=== PATIENT | female | born 1990 | race Caucasian/White ===

== ENCOUNTER 2025-06-07 09:59 | Day surgery (SDC) | payer MEDICAID, SELFPAY ==
[2025-06-06 15:08] VITALS: BMI 36.3
[2025-06-07] VITALS (8 sets, daily range): BP systolic 106–139; BP diastolic 60–95; PULSE 97–118; RESP 18–19; TEMP 36.1–36.3; O2SAT 94–98
--- NOTE | 2025-06-07 10:52 | EXP.ANES.CKL ---
[facility] Disclaimer: The information contained in this section may have been updated after the patient was seen, as this information can be updated by other users. Medical History (Updated 06/06/25 @ 15:07 by Awa Peralta RN) Anxiety Indigestion HLD (hyperlipidemia) Deaf Autism Surgical History (Updated 06/06/25 @ 15:05 by Awa Peralta RN) No significant past surgical history History of cochlear implant Family History (Updated 06/06/25 @ 15:08 by Awa Peralta RN) Other No significant family history Social History (Updated 06/06/25 @ 15:08 by Awa Peralta RN) Smoking Status: Never smoker alcohol intake: never substance use type: denies use current occupational status: disabled Travel in the last 8 weeks?: None [facility] Anesthesia Checklist Patient Identification Patient Identification: Arm Band and Verbal (Name & ) Structural Data Admitted From: Home Planned Operative Procedure/s: Deep cleaning w/ possible dental work Consent for Planned Operative Procedure(s) Verified: Yes Verified Documents: Surgical Consent NPO Status Verified Time NPO: 00:00 Chart Verification Results Verified: None Additional verifications Anesthesia Reactions: No Hx Blood Transfusions: No Blood Transfusion Reaction: No Airway Assessment Mallampati Score:: Class II C-Spine Mobility Assessed: Yes TMJ Mobility Assessed: Yes Dentition: Poor Dentition Neurological Assessment Level of Consciousness: Awake, Alert and Appropriate Hx Seizures: Yes (Many years ago according to mom) Numbness or tingling in extremities: No (Patient unable to verbalize) Anesthesia Plan Anesthesia Risk discussed: Yes Anesthesia Plan: Verified ASA Class: II Anesthesia Type: General
--- NOTE | 2025-06-07 14:46 | EXP.ANES.I ---
[facility] Anesthesia Record Part I Anesthesia Record I Intake, IV Amount: 1,400 Hydration: Adequate Estimated blood loss (mL): 5 Urine output (mL): 0 Blood Products used (#): none Blood Pressure: 139/81 SaO2: 95 Pulse Rate: 103 Airway Patency: Patent Respiratory Rate: 18 Temperature: 97.1 F Patient is:: Drowsy and Stable Stable to PACU at:: 14:32
--- NOTE | 2025-06-07 16:10 | HMH.ORALP ---
Operative Note Date of procedure: 06/07/25 Date of : 89 Pre-op Diagnosis:: Dental Decay and Periodontal Gum Disease Post-op diagnosis:: same Procedure performed:: Full mouth x-rays and oral exam. Full mouth deep scale cleaning and eight filings. Surgeon:: Yesenia Martínez DMD [employer] Machine Operator(s):: Young Murray MANAGER ART:: Other Anesthesia: GETA Estimated blood loss (mL): 5 Operative findings:: Dental Decay 4-mod, 5-mod, 13-mod, 14-modl, 21-MOBL, 22-dlf, 24-dlf, 30-mod Operative note:: 34 year old female transported to the [facility] today for dental care under general anesthesia in the operating room. An I.V. was started in the O.R. pre-holding room . Patient was transported per stretcher to the O.R. She was moved over to the O.R. table. Smooth and non complicated general anesthesia was induced per nasotracheal intubation. One single moist throat pack was placed. Full mouth digital x-rays taken and reviewed today. Patient was found to have decay teeth numbers 4-mod, 5-mod, 13-mod, 21-MOBL, 22-dlf, 24-dlf, [id number] fillings placed, and 14-modl, 30-mod amalgam fillings placed. Disposition: same day Specimens:: none Complications:: none
[2025-06-08 07:41] VITALS: BP 127/95; PULSE 109; RESP 19; TEMP 36.3; O2SAT 98
--- NOTE | 2025-06-08 07:41 | EXP.ANES.II ---
[facility] [place] Anesthesia Record Part II Anesthesia Record Part II Discharge Time: 15:35 Destination: Surgical Day Care (OP Surgery) PACU nurse assessment reviewed?: Yes Patient Condition:: Good Anesthesia Complications:: None Swallowing reflex intact?: Yes Airway Patency: Patent Cyanosis?: No Blood Pressure: 127/95 SaO2: 98 Respiratory Rate: 19 Pulse Rate: 109 Temperature: 97.3 F Mental Status: Alert & Oriented Pain level:: 0 Nausea and/or vomitting:: None Intake, IV Amount: 0 Hydration: Adequate
== END 2025-06-07 15:47 | disposition home or self-care (01) ==
PROVIDERS: PCP Nurse Practitioner Family; Visit Provider Dentist General Practice
PROC: (CPT D2160; principal; 2025-06-07 11:30)
DX: K02.9 Dental caries, unspecified (principal); K05.6 Periodontal disease, unspecified
CPT/HCPCS: D2160; D2161; D2332 ×2; D2393 ×3; D2394; 84702; J1100; J2003; J2250; J2405; J2704; J3010; J7120